=== PATIENT | male | born 1955 | race Caucasian/White ===

== ENCOUNTER → 2019-12-20 | Outpatient (CLI) | payer MEDICARE ==
[~2019-12-20] MED LIST: ASPIRIN CHILDRE81 MG PO; BAYER ASPIRIN C81 MG PO; CITALOPRAM40 MG PO; FENOFIBRATE160 MG PO; HYCODAN,HYDROME10 ML PO; LIPITOR10 MG PO; LIPITOR20 MG PO; PAXIL10 MG PO; ZITHROMAX250 MG PO
== END | disposition home or self-care (01) ==
LOC: COVID19 04:56
PROVIDERS: ATTEND Physician Assistant Medical
DX: U07.1 COVID-19 (principal)